=== PATIENT | male | born 1995 | race Caucasian/White ===

== ENCOUNTER 2018-07-02 12:21 | Observation (INO) | payer SELFPAY ==
[~2018-07-02] VITALS: Ht 170.2 cm; Wt 63.8 kg
[2018-07-02 12:42] LABS: BASO % 1 % (0-3); EOS # 0.1 x10^3/uL (0.0-0.7); EOS % 2 % (0-3); HEMATOCRIT 40.2 % (39.0-53.0); LYMPH # 1.4 x10^3/uL (1.0-4.8); LYMPH % 27 % (24-48); MEAN CORPUSCULAR HEMOGLOBIN 33 pg (25-35); MEAN CORPUSCULAR HGB CONC 35 g/dL (31-37); MEAN CORPUSCULAR VOLUME 94 fL (79-100); MONO # 0.5 x10^3/uL (0.0-1.1); MONO % 9 % (0-9); NEUT # 3.2 x10^3uL (1.8-7.7); NEUT % 61 % (31-73); PLATELET COUNT 220 x10^3/uL (140-400); WHITE BLOOD COUNT 5.2 x10^3/uL (4.0-11.0)
[2018-07-02 12:55] LABS: ALBUMIN 4.3 g/dL (3.4-5.0); ALBUMIN/GLOBULIN RATIO 1.3 (1.0-1.7); CREATININE 0.9 mg/dL (0.7-1.3); GFR 106.5; TOTAL BILIRUBIN 0.6 mg/dL (0.2-1.0); TOTAL PROTEIN 7.6 g/dL (6.4-8.2)
[2018-07-02 12:59] LABS: BARBITURATES NEG (NEG); BENZODIAZEPINES NEG (NEG); CANNABINOIDS POS (NEG); COCAINE NEG (NEG); METHADONE NEG (NEG); OPIATES NEG (NEG); PHENCYCLIDINE NEG (NEG)
[2018-07-02 13:00] LABS: POTASSIUM 2.9 mmol/L (3.5-5.1)
[2018-07-02 13:05] LABS: AMPHETAMINE/METHAMPHETAMINE POS (NEG)
--- NOTE | 2018-07-02 13:24 | RAD ---
CT HEAD WO CONTRAST Indication: ALTERED MENTAL STATUS, NO PRIORS Exposure: One or more of the following individualized dose reduction techniques were utilized for this examination: 1. Automated exposure control 2. Adjustment of the mA and/or kV according to patient size 3. Use of iterative reconstruction technique. Comparison: None are available. Contrast: None FINDINGS: Posterior fossa is unremarkable. No evidence of acute intracranial hemorrhage or abnormal extra-axial fluid collection. No evidence of mass effect or midline shift. Ventricles are symmetric in size and configuration. Patrick-white matter distinction is intact. Visualized orbits are unremarkable. Visualized paranasal sinuses and mastoids are clear. No acute calvarial abnormality. Impression:Negative for acute intracranial hemorrhage or mass effect. Electronically signed by: Gómez Kaye MD (07/02/2018 1:21 PM) [id number]
[2018-07-02] MEDS ORDERED: POTASSIUM CHLORIDE 20 MEQ/15 ML ORAL LIQUID. PO ONE (13:30)
[2018-07-02] MEDS ORDERED: POTASSIUM CL 30MEQ D5-0.45NACL 1,000 ML IV ONE (15:15)
[2018-07-02] MEDS ORDERED: IV NORMAL SALINE 1000ML BAG 1,000 ML IV ONE (15:15)
--- NOTE | 2018-07-02 15:37 | PHYS DOC ---
Past Medical History Past Medical History: Other Additional Past Medical Histor: UNKNOWN Past Surgical History: Other Additional Past Surgical Histo: UNKNOWN Alcohol Use: Heavy Drug Use: Other Social History Narrative: "ALL OF THEM" Adult General Chief Complaint Chief Complaint: DRUG ABUSE HPI HPI Patient is a 22 year old male brought in by ambulance with decreased mental status following abuse of methamphetamine according to the paramedics. Apparently patient was at a known drug house in the local area and has a history of polysubstance abuse additional history obtained from the mother later on was that he called her earlier and threatened to kill himself by either overdosing on methamphetamine or at one point he said he was going to bang his head against the wall to kill himself and then she actually heard him in doing so. Apparently the patient to [facility] as an inpatient on the psychiatric unit for similar issues 1 month ago. Overall history is limited by the patient's mental status Review of Systems Review of Systems LIMITED BY MENTAL STATUS Current Medications Current Medications Current Medications Medications (Trade) Dose Ordered Sig/Mckenzie Start Time Stop Time Status Last Admin Dose Admin Potassium Chloride (KCl Oral Soln) 40 meq 1X ONCE 07/02/18 13:30 07/02/18 13:31 DC Allergies Allergies Allergies Coded Allergies Type Severity Reaction Last Updated Verified Unable to Assess 07/02/18 No Physical Exam Physical Exam Constitutional: Well developed, UNDERNOURISHED, CHRONICALLY ILL APPEARING. HENT: Normocephalic, atraumatic, bilateral external ears normal, oropharynx moist, no oral exudates, nose normal. [] Eyes: PERRLA,, conjunctiva normal, no discharge. [] Neck: Normal range of motion, no tenderness, supple, no stridor. [] Cardiovascular:MILD TACHY NO MURMURS. Lungs & Thorax: Bilateral breath sounds clear to auscultation [] Abdomen:no tenderness, no masses, no pulsatile masses. [] Skin: Warm, dry, no erythema, no rash. [] MULTIPLE TATTOES. Extremities: No tenderness, no cyanosis, no clubbing, ROM intact, no edema. [] Neurologic: GCS E 3 V 4 M 5 patient requires tactile stimulation to wake up. Grossly moving all extremities pupils are 3 mm. Narcan was given prior to my arrival in the room by the paramedics they said there was no effect. Psychologic: UNABLE TO ASSESS, PT IS SOMONOLENT. Apparently nursing staff was able to ask him about suicidal ideation he said no. Current Patient Data Vital Signs Vital Signs Date Time Temp Pulse Resp B/P (MAP) Pulse Ox O2 Delivery O2 Flow Rate FiO2 07/02/18 14:56 76 13 114/58 (76) 98 Room Air 07/02/18 12:21 97.7 97.7 Lab Values Laboratory Tests Test 07/02/18 12:30 07/02/18 12:31 White Blood Count 5.2 x10^3/uL (4.0-11.0) Red Blood Count 4.30 x10^6/uL (4.30-5.70) Hemoglobin 14.0 g/dL (13.0-17.5) Hematocrit 40.2 % (39.0-53.0) Mean Corpuscular Volume 94 fL (79-100) Mean Corpuscular Hemoglobin 33 pg (25-35) Mean Corpuscular Hemoglobin Concent 35 g/dL (31-37) Red Cell Distribution Width 13.0 % (11.5-14.5) Platelet Count 220 x10^3/uL (140-400) Neutrophils (%) (Auto) 61 % (31-73) Lymphocytes (%) (Auto) 27 % (24-48) Monocytes (%) (Auto) 9 % (0-9) Eosinophils (%) (Auto) 2 % (0-3) Basophils (%) (Auto) 1 % (0-3) Neutrophils # (Auto) 3.2 x10^3uL (1.8-7.7) Lymphocytes # (Auto) 1.4 x10^3/uL (1.0-4.8) Monocytes # (Auto) 0.5 x10^3/uL (0.0-1.1) Eosinophils # (Auto) 0.1 x10^3/uL (0.0-0.7) Basophils # (Auto) 0.0 x10^3/uL (0.0-0.2) Sodium Level 141 mmol/L (136-145) Potassium Level 2.9 mmol/L (3.5-5.1) *L Chloride Level 100 mmol/L (98-107) Carbon Dioxide Level 25 mmol/L (21-32) Anion Gap 16 (6-14) H Blood Urea Nitrogen 7 mg/dL (8-26) L Creatinine 0.9 mg/dL (0.7-1.3) Estimated GFR (Cockcroft-Gault) 106.5 BUN/Creatinine Ratio 8 (6-20) Glucose Level 75 mg/dL (70-99) Calcium Level 9.0 mg/dL (8.5-10.1) Total Bilirubin 0.6 mg/dL (0.2-1.0) Aspartate Amino Transferase (AST) 27 U/L (15-37) Alanine Aminotransferase (ALT) 26 U/L (16-63) Alkaline Phosphatase 92 U/L (46-116) Total Protein 7.6 g/dL (6.4-8.2) Albumin 4.3 g/dL (3.4-5.0) Albumin/Globulin Ratio 1.3 (1.0-1.7) Ethyl Alcohol Level < 10 mg/dL (0-10) Urine Opiates Screen Neg (NEG) Urine Methadone Screen Neg (NEG) Urine Barbiturates Neg (NEG) Urine Phencyclidine Screen Neg (NEG) Urine Amphetamine/Methamphetamine Pos (NEG) Urine Benzodiazepines Screen Neg (NEG) Urine Cocaine Screen Neg (NEG) Urine Cannabinoids Screen Pos (NEG) Urine Ethyl Alcohol Neg (NEG) Laboratory Tests 07/02/18 12:30 Laboratory Tests 07/02/18 12:30 EKG EKG [] Radiology/Procedures Radiology/Procedures [] Impressions: FINDINGS: Posterior fossa is unremarkable. No evidence of acute intracranial hemorrhage or abnormal extra-axial fluid collection. No evidence of mass effect or midline shift. Ventricles are symmetric in size and configuration. Patrick-white matter distinction is intact. Visualized orbits are unremarkable. Visualized paranasal sinuses and mastoids are clear. No acute calvarial abnormality. Impression:Negative for acute intracranial hemorrhage or mass effect. Electronically signed by: Gómez Kaye MD (07/02/2018 1:21 PM) [id number] DICTATED and SIGNED BY: GÓMEZ KAYE MD DATE: 07/02/18 9152 Course & Med Decision Making Course & Med Decision Making Pertinent Labs and Imaging studies reviewed. (See chart for details) []Mom is at the bedside she is very concerned about patient's psychiatric status she says that he has thoughts of self-harm and even was trying to bang his head against the wall to kill himself. I spoke with Brad who came over to see him but patient was not interviewed mobile so the patient will be admitted on a 1-1 sitter KCl going on maintenance IV fluids because the patient was not able to take orals due to somnolence which is very likely related to methamphetamine washout patient will be reevaluated tomorrow for possible psychiatric placement by the PAT team Dr. Vazquez was made aware of the admission. Dragon Disclaimer Dragon Disclaimer This electronic medical record was generated, in whole or in part, using a voice recognition dictation system. Departure Departure Impression: Primary Impression: Suicidal ideation Disposition: ADMITTED INPATIENT Condition: STABLE Referrals: JOSEPH HO (PCP) JUANITA BARNES MD Jul 02, 2018 15:37
[2018-07-02 16:08] VITALS: BP 99/54
--- NOTE | 2018-07-02 18:25 | PDOC1 ---
History and Physical Date of Admission Date of Admission DATE: 07/02/18 TIME: 18:11 Identification/Chief Complaint Chief Complaint SEEN IN ER 22 year old male brought in by ambulance with decreased mental status following abuse of methamphetamine according to the paramedics. 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 Complaint Chief Complaint: DRUG ABUSE, ams Family History Family History: Drug Abuse Social History Smoke: 1 pack per day ALCOHOL: heavy Drugs: Marijuana, Crystal meth Current Problem List Problem List Problems Medical Problems: (1) Suicidal ideation Status: Acute Current Medications Current Medications Current Medications Potassium Chloride (KCl Oral Soln) 40 meq 1X ONCE PO ; Start 07/02/18 at 13:30 ; Stop 07/02/18 at 13:31; Status DC Sodium Chloride 1,000 ml @ 1,000 mls/hr 1X ONCE IV Last administered on at 15:13; Start 07/02/18 at 15:15; Stop 07/02/18 at 16:14; Status DC Potassium Chloride/Dextrose/ Sod Cl 1,000 ml @ 100 mls/hr 1X ONCE IV ; Start 07/02/18 at 15:15; Stop 07/03/18 at 01:14 Allergies Allergies: Coded Allergies: Unable to Assess (Unverified , 07/02/18) ROS Review of System Review of Systems Review of Systems LIMITED BY MENTAL STATUS PSYCHOLOGICAL ROS: YES: Depression, Irritablity, Mood Swings Hematological and Lymphatic: No: Bleeding Problems, Blood Clots, Blood Transfusions, Brusing, Night Sweats, Pallor, Swollen Lymph Nodes, Other Respiratory: No: Cough, Hemoptysis, Orthopnea, Pleuritic Pain, Shortness of breath, SOB with excertion, Sputum Changes, Stridor, Tachypnea, Wheezing, Other Cardiovascular: No Chest Pain, No Palpitations, No Orthopnea, No Paroxysmal Noc. Dyspnea, No Edema, No Lt Headedness, No Other Neurological: Yes Confusion Physical Exam General: Cooperative HEENT: PERRLA, EOMI, Mucous membr. moist/pink Lungs: Clear to auscultation, Normal air movement Heart: S1S2, RRR, no thrills, no gallops, no murmurs Cardiovascular: S1, S2 Breasts: Not examined Abdomen: Normal bowel sounds, Soft Rectal Exam: not examined Extremities: No clubbing, No cyanosis Neuro: Normal tone, Cranial nerves 3-12 NL Vitals Vitals Vital Signs Date Time Temp Pulse Resp B/P (MAP) Pulse Ox O2 Delivery O2 Flow Rate FiO2 07/02/18 16:08 97.2 72 16 99/54 (69) 99 Room Air 97.2 Labs Labs Laboratory Tests Test 07/02/18 12:30 07/02/18 12:31 White Blood Count 5.2 x10^3/uL (4.0-11.0) Red Blood Count 4.30 x10^6/uL (4.30-5.70) Hemoglobin 14.0 g/dL (13.0-17.5) Hematocrit 40.2 % (39.0-53.0) Mean Corpuscular Volume 94 fL (79-100) Mean Corpuscular Hemoglobin 33 pg (25-35) Mean Corpuscular Hemoglobin Concent 35 g/dL (31-37) Red Cell Distribution Width 13.0 % (11.5-14.5) Platelet Count 220 x10^3/uL (140-400) Neutrophils (%) (Auto) 61 % (31-73) Lymphocytes (%) (Auto) 27 % (24-48) Monocytes (%) (Auto) 9 % (0-9) Eosinophils (%) (Auto) 2 % (0-3) Basophils (%) (Auto) 1 % (0-3) Neutrophils # (Auto) 3.2 x10^3uL (1.8-7.7) Lymphocytes # (Auto) 1.4 x10^3/uL (1.0-4.8) Monocytes # (Auto) 0.5 x10^3/uL (0.0-1.1) Eosinophils # (Auto) 0.1 x10^3/uL (0.0-0.7) Basophils # (Auto) 0.0 x10^3/uL (0.0-0.2) Sodium Level 141 mmol/L (136-145) Potassium Level 2.9 mmol/L (3.5-5.1) Chloride Level 100 mmol/L (98-107) Carbon Dioxide Level 25 mmol/L (21-32) Anion Gap 16 (6-14) Blood Urea Nitrogen 7 mg/dL (8-26) Creatinine 0.9 mg/dL (0.7-1.3) Estimated GFR (Cockcroft-Gault) 106.5 BUN/Creatinine Ratio 8 (6-20) Glucose Level 75 mg/dL (70-99) Calcium Level 9.0 mg/dL (8.5-10.1) Total Bilirubin 0.6 mg/dL (0.2-1.0) Aspartate Amino Transf (AST/SGOT) 27 U/L (15-37) Alanine Aminotransferase (ALT/SGPT) 26 U/L (16-63) Alkaline Phosphatase 92 U/L (46-116) Total Protein 7.6 g/dL (6.4-8.2) Albumin 4.3 g/dL (3.4-5.0) Albumin/Globulin Ratio 1.3 (1.0-1.7) Ethyl Alcohol Level < 10 mg/dL (0-10) Urine Opiates Screen Neg (NEG) Urine Methadone Screen Neg (NEG) Urine Barbiturates Neg (NEG) Urine Phencyclidine Screen Neg (NEG) Urine Amphetamine/Methamphetamine Pos (NEG) Urine Benzodiazepines Screen Neg (NEG) Urine Cocaine Screen Neg (NEG) Urine Cannabinoids Screen Pos (NEG) Urine Ethyl Alcohol Neg (NEG) Laboratory Tests Test 07/02/18 12:30 07/02/18 12:31 White Blood Count 5.2 x10^3/uL (4.0-11.0) Red Blood Count 4.30 x10^6/uL (4.30-5.70) Hemoglobin 14.0 g/dL (13.0-17.5) Hematocrit 40.2 % (39.0-53.0) Mean Corpuscular Volume 94 fL (79-100) Mean Corpuscular Hemoglobin 33 pg (25-35) Mean Corpuscular Hemoglobin Concent 35 g/dL (31-37) Red Cell Distribution Width 13.0 % (11.5-14.5) Platelet Count 220 x10^3/uL (140-400) Neutrophils (%) (Auto) 61 % (31-73) Lymphocytes (%) (Auto) 27 % (24-48) Monocytes (%) (Auto) 9 % (0-9) Eosinophils (%) (Auto) 2 % (0-3) Basophils (%) (Auto) 1 % (0-3) Neutrophils # (Auto) 3.2 x10^3uL (1.8-7.7) Lymphocytes # (Auto) 1.4 x10^3/uL (1.0-4.8) Monocytes # (Auto) 0.5 x10^3/uL (0.0-1.1) Eosinophils # (Auto) 0.1 x10^3/uL (0.0-0.7) Basophils # (Auto) 0.0 x10^3/uL (0.0-0.2) Sodium Level 141 mmol/L (136-145) Potassium Level 2.9 mmol/L (3.5-5.1) Chloride Level 100 mmol/L (98-107) Carbon Dioxide Level 25 mmol/L (21-32) Anion Gap 16 (6-14) Blood Urea Nitrogen 7 mg/dL (8-26) Creatinine 0.9 mg/dL (0.7-1.3) Estimated GFR (Cockcroft-Gault) 106.5 BUN/Creatinine Ratio 8 (6-20) Glucose Level 75 mg/dL (70-99) Calcium Level 9.0 mg/dL (8.5-10.1) Total Bilirubin 0.6 mg/dL (0.2-1.0) Aspartate Amino Transf (AST/SGOT) 27 U/L (15-37) Alanine Aminotransferase (ALT/SGPT) 26 U/L (16-63) Alkaline Phosphatase 92 U/L (46-116) Total Protein 7.6 g/dL (6.4-8.2) Albumin 4.3 g/dL (3.4-5.0) Albumin/Globulin Ratio 1.3 (1.0-1.7) Ethyl Alcohol Level < 10 mg/dL (0-10) Urine Opiates Screen Neg (NEG) Urine Methadone Screen Neg (NEG) Urine Barbiturates Neg (NEG) Urine Phencyclidine Screen Neg (NEG) Urine Amphetamine/Methamphetamine Pos (NEG) Urine Benzodiazepines Screen Neg (NEG) Urine Cocaine Screen Neg (NEG) Urine Cannabinoids Screen Pos (NEG) Urine Ethyl Alcohol Neg (NEG) VTE Prophylaxis Ordered VTE Prophylaxis Devices: Yes VTE Pharmacological Prophylaxi: Yes Assessment/Plan Assessment/Plan IMPRESSION 1. AMS 2. POLYSUBSTANCE ABUSE 3. SEVERE ALCOHOL ABUSE 4. MAJOR DEPRESSION WITH SUICIDE IDEATIONS PLAN 1. SUICIDE PRECAUTIONS 2. BANANA BAG 3. SITTER 4. WITHDRAWAL PRECAUTIONS 5. CASE MGT/ PAT TEAM 6. DVT PROPHYLAXIS 7. PO PROTONIX LEONCIO SANTILLAN MD Jul 02, 2018 18:24
[2018-07-02] MEDS: PANTOPRAZOLE 40 MG TABLET.DR. PO SCH (19:30)
[2018-07-02 19:55] VITALS: BP 94/49
[2018-07-02] MEDS: ENOXAPARIN 40 MG/0.4 ML SYRINGE. SQ SCH (20:34)
[2018-07-02 23:00] VITALS: BP 94/47
[2018-07-03 03:59] VITALS: BP 118/69
[2018-07-03 06:35] LABS: BASO % 1 % (0-3); EOS # 0.4 x10^3/uL (0.0-0.7); EOS % 7 % (0-3); HEMATOCRIT 39.6 % (39.0-53.0); HEMOGLOBIN 13.9 g/dL (13.0-17.5); LYMPH % 37 % (24-48); MEAN CORPUSCULAR HEMOGLOBIN 33 pg (25-35); MEAN CORPUSCULAR HGB CONC 35 g/dL (31-37); MEAN CORPUSCULAR VOLUME 94 fL (79-100); MONO # 0.6 x10^3/uL (0.0-1.1); MONO % 11 % (0-9); NEUT # 2.5 x10^3uL (1.8-7.7); NEUT % 45 % (31-73); PLATELET COUNT 215 x10^3/uL (140-400); RED BLOOD COUNT 4.22 x10^6/uL (4.30-5.70); WHITE BLOOD COUNT 5.5 x10^3/uL (4.0-11.0)
[2018-07-03 06:43] LABS: ALBUMIN 3.4 g/dL (3.4-5.0); ALBUMIN/GLOBULIN RATIO 1.2 (1.0-1.7); CALCIUM 8.4 mg/dL (8.5-10.1); CREATININE 0.8 mg/dL (0.7-1.3); POTASSIUM 3.2 mmol/L (3.5-5.1); TOTAL BILIRUBIN 0.5 mg/dL (0.2-1.0); TOTAL PROTEIN 6.2 g/dL (6.4-8.2)
[2018-07-03 07:25] VITALS: BP 115/61
[2018-07-03] MEDS: PANTOPRAZOLE 40 MG TABLET.DR. PO SCH (07:30)
--- NOTE | 2018-07-03 08:38 | PDOC ---
PROGRESS NOTES Chief Complaint Chief Complaint depression and drug use, has been in legal trouble for many years, on drugs including meth, heavy alcohol intake mother is very concerned, he feels she is manipulative, Mother has been from his dad x yrs, due to dad's drug and alcohol use very complex social situation, he needs inpatient psych help, was at [facility] floor x 1 week last week long involved discussion with goals of stay, suicide precautions Brad may have a warrant out for his arrest in [place] due to missed court date History of Present Illness History of Present Illness Assessment/Plan Assessment/Plan IMPRESSION 1. AMS 2. POLYSUBSTANCE ABUSE 3. SEVERE ALCOHOL ABUSE 4. MAJOR DEPRESSION WITH SUICIDE IDEATIONS 5. previous hx suicide attempt at age 14 PLAN 1. SUICIDE PRECAUTIONS 2. BANANA BAG 3. SITTER 4. WITHDRAWAL PRECAUTIONS 5. CASE MGT/ PAT TEAM 6. DVT PROPHYLAXIS 7. PO PROTONIX case mgt to assist please Vitals Vitals Vital Signs Date Time Temp Pulse Resp B/P (MAP) Pulse Ox O2 Delivery O2 Flow Rate FiO2 07/03/18 08:07 Room Air 07/03/18 07:25 97.7 71 18 115/61 (79) 97 97.7 Physical Exam General: Alert, Oriented X3, Cooperative Heart: Regular rate, Normal S1, Normal S2 Lungs: Clear Abdomen: Normal bowel sounds, Soft Extremities: No clubbing, No cyanosis Skin: Other (many tattoos) Labs LABS Laboratory Tests Test 07/02/18 12:30 07/02/18 12:31 07/03/18 05:55 White Blood Count 5.2 x10^3/uL (4.0-11.0) 5.5 x10^3/uL (4.0-11.0) Red Blood Count 4.30 x10^6/uL (4.30-5.70) 4.22 x10^6/uL (4.30-5.70) Hemoglobin 14.0 g/dL (13.0-17.5) 13.9 g/dL (13.0-17.5) Hematocrit 40.2 % (39.0-53.0) 39.6 % (39.0-53.0) Mean Corpuscular Volume 94 fL (79-100) 94 fL (79-100) Mean Corpuscular Hemoglobin 33 pg (25-35) 33 pg (25-35) Mean Corpuscular Hemoglobin Concent 35 g/dL (31-37) 35 g/dL (31-37) Red Cell Distribution Width 13.0 % (11.5-14.5) 13.0 % (11.5-14.5) Platelet Count 220 x10^3/uL (140-400) 215 x10^3/uL (140-400) Neutrophils (%) (Auto) 61 % (31-73) 45 % (31-73) Lymphocytes (%) (Auto) 27 % (24-48) 37 % (24-48) Monocytes (%) (Auto) 9 % (0-9) 11 % (0-9) Eosinophils (%) (Auto) 2 % (0-3) 7 % (0-3) Basophils (%) (Auto) 1 % (0-3) 1 % (0-3) Neutrophils # (Auto) 3.2 x10^3uL (1.8-7.7) 2.5 x10^3uL (1.8-7.7) Lymphocytes # (Auto) 1.4 x10^3/uL (1.0-4.8) 2.0 x10^3/uL (1.0-4.8) Monocytes # (Auto) 0.5 x10^3/uL (0.0-1.1) 0.6 x10^3/uL (0.0-1.1) Eosinophils # (Auto) 0.1 x10^3/uL (0.0-0.7) 0.4 x10^3/uL (0.0-0.7) Basophils # (Auto) 0.0 x10^3/uL (0.0-0.2) 0.0 x10^3/uL (0.0-0.2) Sodium Level 141 mmol/L (136-145) 140 mmol/L (136-145) Potassium Level 2.9 mmol/L (3.5-5.1) 3.2 mmol/L (3.5-5.1) Chloride Level 100 mmol/L (98-107) 104 mmol/L (98-107) Carbon Dioxide Level 25 mmol/L (21-32) 26 mmol/L (21-32) Anion Gap 16 (6-14) 10 (6-14) Blood Urea Nitrogen 7 mg/dL (8-26) 3 mg/dL (8-26) Creatinine 0.9 mg/dL (0.7-1.3) 0.8 mg/dL (0.7-1.3) Estimated GFR (Cockcroft-Gault) 106.5 122.0 BUN/Creatinine Ratio 8 (6-20) 4 (6-20) Glucose Level 75 mg/dL (70-99) 91 mg/dL (70-99) Calcium Level 9.0 mg/dL (8.5-10.1) 8.4 mg/dL (8.5-10.1) Total Bilirubin 0.6 mg/dL (0.2-1.0) 0.5 mg/dL (0.2-1.0) Aspartate Amino Transf (AST/SGOT) 27 U/L (15-37) 19 U/L (15-37) Alanine Aminotransferase (ALT/SGPT) 26 U/L (16-63) 19 U/L (16-63) Alkaline Phosphatase 92 U/L (46-116) 76 U/L (46-116) Total Protein 7.6 g/dL (6.4-8.2) 6.2 g/dL (6.4-8.2) Albumin 4.3 g/dL (3.4-5.0) 3.4 g/dL (3.4-5.0) Albumin/Globulin Ratio 1.3 (1.0-1.7) 1.2 (1.0-1.7) Ethyl Alcohol Level < 10 mg/dL (0-10) Urine Opiates Screen Neg (NEG) Urine Methadone Screen Neg (NEG) Urine Barbiturates Neg (NEG) Urine Phencyclidine Screen Neg (NEG) Urine Amphetamine/Methamphetamine Pos (NEG) Urine Benzodiazepines Screen Neg (NEG) Urine Cocaine Screen Neg (NEG) Urine Cannabinoids Screen Pos (NEG) Urine Ethyl Alcohol Neg (NEG) Assessment and Plan Assessmemt and Plan Problems Medical Problems: (1) Suicidal ideation Status: Acute Comment Review of Relevant I have reviewed the following items arline (where applicable) has been applied. Labs Laboratory Tests Test 07/02/18 12:30 07/02/18 12:31 07/03/18 05:55 White Blood Count 5.2 x10^3/uL (4.0-11.0) 5.5 x10^3/uL (4.0-11.0) Red Blood Count 4.30 x10^6/uL (4.30-5.70) 4.22 x10^6/uL (4.30-5.70) Hemoglobin 14.0 g/dL (13.0-17.5) 13.9 g/dL (13.0-17.5) Hematocrit 40.2 % (39.0-53.0) 39.6 % (39.0-53.0) Mean Corpuscular Volume 94 fL (79-100) 94 fL (79-100) Mean Corpuscular Hemoglobin 33 pg (25-35) 33 pg (25-35) Mean Corpuscular Hemoglobin Concent 35 g/dL (31-37) 35 g/dL (31-37) Red Cell Distribution Width 13.0 % (11.5-14.5) 13.0 % (11.5-14.5) Platelet Count 220 x10^3/uL (140-400) 215 x10^3/uL (140-400) Neutrophils (%) (Auto) 61 % (31-73) 45 % (31-73) Lymphocytes (%) (Auto) 27 % (24-48) 37 % (24-48) Monocytes (%) (Auto) 9 % (0-9) 11 % (0-9) Eosinophils (%) (Auto) 2 % (0-3) 7 % (0-3) Basophils (%) (Auto) 1 % (0-3) 1 % (0-3) Neutrophils # (Auto) 3.2 x10^3uL (1.8-7.7) 2.5 x10^3uL (1.8-7.7) Lymphocytes # (Auto) 1.4 x10^3/uL (1.0-4.8) 2.0 x10^3/uL (1.0-4.8) Monocytes # (Auto) 0.5 x10^3/uL (0.0-1.1) 0.6 x10^3/uL (0.0-1.1) Eosinophils # (Auto) 0.1 x10^3/uL (0.0-0.7) 0.4 x10^3/uL (0.0-0.7) Basophils # (Auto) 0.0 x10^3/uL (0.0-0.2) 0.0 x10^3/uL (0.0-0.2) Sodium Level 141 mmol/L (136-145) 140 mmol/L (136-145) Potassium Level 2.9 mmol/L (3.5-5.1) 3.2 mmol/L (3.5-5.1) Chloride Level 100 mmol/L (98-107) 104 mmol/L (98-107) Carbon Dioxide Level 25 mmol/L (21-32) 26 mmol/L (21-32) Anion Gap 16 (6-14) 10 (6-14) Blood Urea Nitrogen 7 mg/dL (8-26) 3 mg/dL (8-26) Creatinine 0.9 mg/dL (0.7-1.3) 0.8 mg/dL (0.7-1.3) Estimated GFR (Cockcroft-Gault) 106.5 122.0 BUN/Creatinine Ratio 8 (6-20) 4 (6-20) Glucose Level 75 mg/dL (70-99) 91 mg/dL (70-99) Calcium Level 9.0 mg/dL (8.5-10.1) 8.4 mg/dL (8.5-10.1) Total Bilirubin 0.6 mg/dL (0.2-1.0) 0.5 mg/dL (0.2-1.0) Aspartate Amino Transf (AST/SGOT) 27 U/L (15-37) 19 U/L (15-37) Alanine Aminotransferase (ALT/SGPT) 26 U/L (16-63) 19 U/L (16-63) Alkaline Phosphatase 92 U/L (46-116) 76 U/L (46-116) Total Protein 7.6 g/dL (6.4-8.2) 6.2 g/dL (6.4-8.2) Albumin 4.3 g/dL (3.4-5.0) 3.4 g/dL (3.4-5.0) Albumin/Globulin Ratio 1.3 (1.0-1.7) 1.2 (1.0-1.7) Ethyl Alcohol Level < 10 mg/dL (0-10) Urine Opiates Screen Neg (NEG) Urine Methadone Screen Neg (NEG) Urine Barbiturates Neg (NEG) Urine Phencyclidine Screen Neg (NEG) Urine Amphetamine/Methamphetamine Pos (NEG) Urine Benzodiazepines Screen Neg (NEG) Urine Cocaine Screen Neg (NEG) Urine Cannabinoids Screen Pos (NEG) Urine Ethyl Alcohol Neg (NEG) Laboratory Tests Test 07/02/18 12:30 07/02/18 12:31 07/03/18 05:55 White Blood Count 5.2 x10^3/uL (4.0-11.0) 5.5 x10^3/uL (4.0-11.0) Red Blood Count 4.30 x10^6/uL (4.30-5.70) 4.22 x10^6/uL (4.30-5.70) Hemoglobin 14.0 g/dL (13.0-17.5) 13.9 g/dL (13.0-17.5) Hematocrit 40.2 % (39.0-53.0) 39.6 % (39.0-53.0) Mean Corpuscular Volume 94 fL (79-100) 94 fL (79-100) Mean Corpuscular Hemoglobin 33 pg (25-35) 33 pg (25-35) Mean Corpuscular Hemoglobin Concent 35 g/dL (31-37) 35 g/dL (31-37) Red Cell Distribution Width 13.0 % (11.5-14.5) 13.0 % (11.5-14.5) Platelet Count 220 x10^3/uL (140-400) 215 x10^3/uL (140-400) Neutrophils (%) (Auto) 61 % (31-73) 45 % (31-73) Lymphocytes (%) (Auto) 27 % (24-48) 37 % (24-48) Monocytes (%) (Auto) 9 % (0-9) 11 % (0-9) Eosinophils (%) (Auto) 2 % (0-3) 7 % (0-3) Basophils (%) (Auto) 1 % (0-3) 1 % (0-3) Neutrophils # (Auto) 3.2 x10^3uL (1.8-7.7) 2.5 x10^3uL (1.8-7.7) Lymphocytes # (Auto) 1.4 x10^3/uL (1.0-4.8) 2.0 x10^3/uL (1.0-4.8) Monocytes # (Auto) 0.5 x10^3/uL (0.0-1.1) 0.6 x10^3/uL (0.0-1.1) Eosinophils # (Auto) 0.1 x10^3/uL (0.0-0.7) 0.4 x10^3/uL (0.0-0.7) Basophils # (Auto) 0.0 x10^3/uL (0.0-0.2) 0.0 x10^3/uL (0.0-0.2) Sodium Level 141 mmol/L (136-145) 140 mmol/L (136-145) Potassium Level 2.9 mmol/L (3.5-5.1) 3.2 mmol/L (3.5-5.1) Chloride Level 100 mmol/L (98-107) 104 mmol/L (98-107) Carbon Dioxide Level 25 mmol/L (21-32) 26 mmol/L (21-32) Anion Gap 16 (6-14) 10 (6-14) Blood Urea Nitrogen 7 mg/dL (8-26) 3 mg/dL (8-26) Creatinine 0.9 mg/dL (0.7-1.3) 0.8 mg/dL (0.7-1.3) Estimated GFR (Cockcroft-Gault) 106.5 122.0 BUN/Creatinine Ratio 8 (6-20) 4 (6-20) Glucose Level 75 mg/dL (70-99) 91 mg/dL (70-99) Calcium Level 9.0 mg/dL (8.5-10.1) 8.4 mg/dL (8.5-10.1) Total Bilirubin 0.6 mg/dL (0.2-1.0) 0.5 mg/dL (0.2-1.0) Aspartate Amino Transf (AST/SGOT) 27 U/L (15-37) 19 U/L (15-37) Alanine Aminotransferase (ALT/SGPT) 26 U/L (16-63) 19 U/L (16-63) Alkaline Phosphatase 92 U/L (46-116) 76 U/L (46-116) Total Protein 7.6 g/dL (6.4-8.2) 6.2 g/dL (6.4-8.2) Albumin 4.3 g/dL (3.4-5.0) 3.4 g/dL (3.4-5.0) Albumin/Globulin Ratio 1.3 (1.0-1.7) 1.2 (1.0-1.7) Ethyl Alcohol Level < 10 mg/dL (0-10) Urine Opiates Screen Neg (NEG) Urine Methadone Screen Neg (NEG) Urine Barbiturates Neg (NEG) Urine Phencyclidine Screen Neg (NEG) Urine Amphetamine/Methamphetamine Pos (NEG) Urine Benzodiazepines Screen Neg (NEG) Urine Cocaine Screen Neg (NEG) Urine Cannabinoids Screen Pos (NEG) Urine Ethyl Alcohol Neg (NEG) Medications Current Medications Potassium Chloride (KCl Oral Soln) 40 meq 1X ONCE PO ; Start 07/02/18 at 13:30 ; Stop 07/02/18 at 13:31; Status DC Sodium Chloride 1,000 ml @ 1,000 mls/hr 1X ONCE IV Last administered on at 15:13; Start 07/02/18 at 15:15; Stop 07/02/18 at 16:14; Status DC Potassium Chloride/Dextrose/ Sod Cl 1,000 ml @ 100 mls/hr 1X ONCE IV Last administered on 07/02/18at 19:44; Start 07/02/18 at 15:15; Stop 07/03/18 at 01:14 ; Status DC Enoxaparin Sodium (Lovenox 40mg Syringe) 40 mg Q24H SQ ; Start 07/02/18 at 21:00 Pantoprazole Sodium (Protonix) 40 mg DAILYAC PO ; Start 07/02/18 at 19:30 Vitals/I & O Vital Sign - Last 24 Hours 07/02/18 07/02/18 07/02/18 07/02/18 12:21 12:56 13:26 13:56 Temp 97.7 97.7 Pulse 89 86 92 86 Resp 14 13 15 13 B/P (MAP) 132/79 (96) 116/68 (84) 119/62 (81) 110/55 (73) Pulse Ox 98 98 98 98 O2 Delivery Room Air Room Air Room Air Room Air 07/02/18 07/02/18 07/02/18 07/02/18 14:26 14:56 15:26 16:08 Temp 97.2 97.2 Pulse 84 76 76 72 Resp 12 13 16 16 B/P (MAP) 103/54 (70) 114/58 (76) 127/75 (92) 99/54 (69) Pulse Ox 98 98 100 99 O2 Delivery Room Air Room Air Room Air Room Air 07/02/18 07/02/18 07/02/18 07/02/18 19:55 19:55 19:55 20:00 Temp 97.8 97.8 97.8 97.8 Pulse 72 72 Resp 19 19 B/P (MAP) 94/49 (64) 94/49 (64) Pulse Ox 100 100 O2 Delivery Room Air Room Air Room Air 07/02/18 07/02/18 07/03/18 07/03/18 23:00 23:00 03:59 07:25 Temp 97.6 97.4 97.7 97.6 97.4 97.7 Pulse 72 82 71 Resp 19 18 18 B/P (MAP) 94/47 (63) 118/69 (85) 115/61 (79) Pulse Ox 99 97 97 O2 Delivery Room Air Room Air Room Air 07/03/18 08:07 O2 Delivery Room Air Intake and Output 07/02/18 07/02/18 07/03/18 15:00 23:00 07:00 Intake Total 0 ml Output Total 0 ml Balance 0 ml LEONCIO SANTILLAN MD Jul 03, 2018 08:38
[2018-07-03 11:00] VITALS: BP 117/76
[2018-07-03 15:00] VITALS: BP 119/77
[2018-07-03 19:29] VITALS: BP 117/69
[2018-07-03] MEDS: ENOXAPARIN 40 MG/0.4 ML SYRINGE. SQ SCH (20:13)
[2018-07-03 23:59] VITALS: BP 110/55
[2018-07-04 02:29] VITALS: BP 100/57
[2018-07-04 07:33] VITALS: BP 115/79
[2018-07-04] MEDS: PANTOPRAZOLE 40 MG TABLET.DR. PO SCH (08:30)
--- NOTE | 2018-07-04 09:18 | PDOC ---
PROGRESS NOTES Chief Complaint Chief Complaint depression and drug use, has been in legal trouble for many years, on drugs including meth, heavy alcohol intake mother is very concerned, he feels she is manipulative, Mother has been from his dad x yrs, due to dad's drug and alcohol use very complex social situation, he needs inpatient psych help, was at [facility] floor x 1 week last week long involved discussion with goals of stay, suicide precautions, mother is concerned that he had a rope at his home and may have tried to hang himself Brad may have a warrant out for his arrest in [place] due to missed court date d/w [facility], THEY WILL ACCEPT TODAY History of Present Illness History of Present Illness Assessment/Plan Assessment/Plan IMPRESSION 1. AMS 2. POLYSUBSTANCE ABUSE 3. SEVERE ALCOHOL ABUSE 4. MAJOR DEPRESSION WITH SUICIDE IDEATIONS 5. previous hx suicide attempt at age 14 PLAN 1. SUICIDE PRECAUTIONS 2. BANANA BAG 3. SITTER 4. WITHDRAWAL PRECAUTIONS 5. CASE MGT/ PAT TEAM 6. DVT PROPHYLAXIS 7. PO PROTONIX case mgt to assist please Vitals Vitals Vital Signs Date Time Temp Pulse Resp B/P (MAP) Pulse Ox O2 Delivery O2 Flow Rate FiO2 07/04/18 07:52 Room Air 07/04/18 07:33 97.9 80 18 115/79 (91) 96 97.9 Physical Exam General: Alert, Oriented X3, Cooperative, No acute distress Heart: Regular rate, Normal S1, Normal S2 Lungs: Clear Abdomen: Normal bowel sounds, Soft, No tenderness Extremities: No clubbing, No cyanosis Skin: No breakdown, Other (many tattoos) Assessment and Plan Assessmemt and Plan Problems Medical Problems: (1) Suicidal ideation Status: Acute Comment Review of Relevant I have reviewed the following items arline (where applicable) has been applied. Labs Laboratory Tests Test 07/02/18 12:30 07/02/18 12:31 07/03/18 05:55 White Blood Count 5.2 x10^3/uL (4.0-11.0) 5.5 x10^3/uL (4.0-11.0) Red Blood Count 4.30 x10^6/uL (4.30-5.70) 4.22 x10^6/uL (4.30-5.70) Hemoglobin 14.0 g/dL (13.0-17.5) 13.9 g/dL (13.0-17.5) Hematocrit 40.2 % (39.0-53.0) 39.6 % (39.0-53.0) Mean Corpuscular Volume 94 fL (79-100) 94 fL (79-100) Mean Corpuscular Hemoglobin 33 pg (25-35) 33 pg (25-35) Mean Corpuscular Hemoglobin Concent 35 g/dL (31-37) 35 g/dL (31-37) Red Cell Distribution Width 13.0 % (11.5-14.5) 13.0 % (11.5-14.5) Platelet Count 220 x10^3/uL (140-400) 215 x10^3/uL (140-400) Neutrophils (%) (Auto) 61 % (31-73) 45 % (31-73) Lymphocytes (%) (Auto) 27 % (24-48) 37 % (24-48) Monocytes (%) (Auto) 9 % (0-9) 11 % (0-9) Eosinophils (%) (Auto) 2 % (0-3) 7 % (0-3) Basophils (%) (Auto) 1 % (0-3) 1 % (0-3) Neutrophils # (Auto) 3.2 x10^3uL (1.8-7.7) 2.5 x10^3uL (1.8-7.7) Lymphocytes # (Auto) 1.4 x10^3/uL (1.0-4.8) 2.0 x10^3/uL (1.0-4.8) Monocytes # (Auto) 0.5 x10^3/uL (0.0-1.1) 0.6 x10^3/uL (0.0-1.1) Eosinophils # (Auto) 0.1 x10^3/uL (0.0-0.7) 0.4 x10^3/uL (0.0-0.7) Basophils # (Auto) 0.0 x10^3/uL (0.0-0.2) 0.0 x10^3/uL (0.0-0.2) Sodium Level 141 mmol/L (136-145) 140 mmol/L (136-145) Potassium Level 2.9 mmol/L (3.5-5.1) 3.2 mmol/L (3.5-5.1) Chloride Level 100 mmol/L (98-107) 104 mmol/L (98-107) Carbon Dioxide Level 25 mmol/L (21-32) 26 mmol/L (21-32) Anion Gap 16 (6-14) 10 (6-14) Blood Urea Nitrogen 7 mg/dL (8-26) 3 mg/dL (8-26) Creatinine 0.9 mg/dL (0.7-1.3) 0.8 mg/dL (0.7-1.3) Estimated GFR (Cockcroft-Gault) 106.5 122.0 BUN/Creatinine Ratio 8 (6-20) 4 (6-20) Glucose Level 75 mg/dL (70-99) 91 mg/dL (70-99) Calcium Level 9.0 mg/dL (8.5-10.1) 8.4 mg/dL (8.5-10.1) Total Bilirubin 0.6 mg/dL (0.2-1.0) 0.5 mg/dL (0.2-1.0) Aspartate Amino Transf (AST/SGOT) 27 U/L (15-37) 19 U/L (15-37) Alanine Aminotransferase (ALT/SGPT) 26 U/L (16-63) 19 U/L (16-63) Alkaline Phosphatase 92 U/L (46-116) 76 U/L (46-116) Total Protein 7.6 g/dL (6.4-8.2) 6.2 g/dL (6.4-8.2) Albumin 4.3 g/dL (3.4-5.0) 3.4 g/dL (3.4-5.0) Albumin/Globulin Ratio 1.3 (1.0-1.7) 1.2 (1.0-1.7) Ethyl Alcohol Level < 10 mg/dL (0-10) Urine Opiates Screen Neg (NEG) Urine Methadone Screen Neg (NEG) Urine Barbiturates Neg (NEG) Urine Phencyclidine Screen Neg (NEG) Urine Amphetamine/Methamphetamine Pos (NEG) Urine Benzodiazepines Screen Neg (NEG) Urine Cocaine Screen Neg (NEG) Urine Cannabinoids Screen Pos (NEG) Urine Ethyl Alcohol Neg (NEG) Medications Current Medications Potassium Chloride (KCl Oral Soln) 40 meq 1X ONCE PO ; Start 07/02/18 at 13:30 ; Stop 07/02/18 at 13:31; Status DC Sodium Chloride 1,000 ml @ 1,000 mls/hr 1X ONCE IV Last administered on at 15:13; Start 07/02/18 at 15:15; Stop 07/02/18 at 16:14; Status DC Potassium Chloride/Dextrose/ Sod Cl 1,000 ml @ 100 mls/hr 1X ONCE IV Last administered on 07/02/18at 19:44; Start 07/02/18 at 15:15; Stop 07/03/18 at 01:14 ; Status DC Enoxaparin Sodium (Lovenox 40mg Syringe) 40 mg Q24H SQ ; Start 07/02/18 at 21:00 Pantoprazole Sodium (Protonix) 40 mg DAILYAC PO Last administered on 07/04/18at 08:30; Start 07/02/18 at 19:30 Lorazepam (Ativan) 1 mg PRN Q8HRS PRN IV ANXIETY / AGITATION; Start 07/03/18 at 15:45 Vitals/I & O Vital Sign - Last 24 Hours 07/03/18 07/03/18 07/03/18 07/03/18 11:00 12:49 15:00 19:29 Temp 97.8 97.9 97.5 97.8 97.9 97.5 Pulse 97 91 83 Resp 16 16 18 B/P (MAP) 117/76 (90) 119/77 (91) 117/69 (85) Pulse Ox 95 95 95 O2 Delivery Room Air Room Air Room Air Room Air 07/03/18 07/03/18 07/03/18 07/04/18 19:45 23:59 23:59 02:29 Temp 97.6 97.5 97.6 97.5 Pulse 64 63 Resp 21 20 B/P (MAP) 110/55 (73) 100/57 (71) Pulse Ox 97 95 O2 Delivery Room Air Room Air Room Air 07/04/18 07/04/18 07:33 07:52 Temp 97.9 97.9 Pulse 80 Resp 18 B/P (MAP) 115/79 (91) Pulse Ox 96 O2 Delivery Room Air Room Air Intake and Output 07/03/18 07/03/18 07/04/18 15:00 23:00 07:00 Intake Total 1960 ml 1000 ml 200 ml Output Total 0 ml 800 ml 0 ml Balance 1960 ml 200 ml 200 ml LEONCIO SANTILLAN MD Jul 04, 2018 09:18
[2018-07-04 10:29] VITALS: BP 112/74
[2018-07-04 15:13] VITALS: BP 117/68
--- NOTE | 2018-07-04 15:28 | PDOC3 ---
Discharge Summary Date of Admission: Jul 02, 2018 Date of Discharge: Jul 04, 2018 Follow-Up: 1-2 days Admitting Diagnosis comment: Chief Complaint Chief Complaint depression and drug use, has been in legal trouble for many years, on drugs including meth, heavy alcohol intake mother is very concerned, he feels she is manipulative, Mother has been from his dad x yrs, due to dad's drug and alcohol use very complex social situation, he needs inpatient psych help, was at [facility] floor x 1 week last week long involved discussion with goals of stay, suicide precautions, mother is concerned that he had a rope at his home and may have tried to hang himself Brad may have a warrant out for his arrest in [place] due to missed court date d/w [facility], THEY WILL ACCEPT TODAY History of Present Illness History of Present Illness Assessment/Plan TRANSFER DIAGNOSIS/ D/C DX 1. ACUTE MENTAL STATUS ALTERATION SEC # 2 , # 3 2. POLYSUBSTANCE ABUSE 3. SEVERE ALCOHOL ABUSE 4. MAJOR DEPRESSION WITH SUICIDE IDEATIONS 5. previous hx suicide attempt at age 14 PLAN 1. SUICIDE PRECAUTIONS 2. BANANA BAG 3. SITTER 4. WITHDRAWAL PRECAUTIONS 5. CASE MGT/ PAT TEAM 6. DVT PROPHYLAXIS 7. PO PROTONIX TRANSFER TO OSH TODAY BY AMBULANCE case mgt to assist please Vitals Vitals Vital Signs Date Time Temp Pulse Resp B/P (MAP) Pulse Ox O2 Delivery O2 Flow Rate FiO2 07/04/18 07:52 Room Air 07/04/18 07:33 97.9 80 18 115/79 (91) 96 97.9 Physical Exam General: Alert, Oriented X3, Cooperative, No acute distress Heart: Regular rate, Normal S1, Normal S2 Lungs: Clear Abdomen: Normal bowel sounds, Soft, No tenderness Extremities: No clubbing, No cyanosis Skin: No breakdown, Other (many tattoos) FINAL DIAGNOSIS Problems Medical Problems: (1) Suicidal ideation Status: Acute Brief Hospital Course Mr. Young is a 22 old [sex] who presented with [ MAJOR DEPRESSION, SUBSTANCE ABUSE] CONDITION AT DISCHARGE: Comment (GUARDED) Discharge Medications Current Medications Potassium Chloride (KCl Oral Soln) 40 meq 1X ONCE PO ; Start 07/02/18 at 13:30 ; Stop 07/02/18 at 13:31; Status DC Sodium Chloride 1,000 ml @ 1,000 mls/hr 1X ONCE IV Last administered on at 15:13; Start 07/02/18 at 15:15; Stop 07/02/18 at 16:14; Status DC Potassium Chloride/Dextrose/ Sod Cl 1,000 ml @ 100 mls/hr 1X ONCE IV Last administered on 07/02/18at 19:44; Start 07/02/18 at 15:15; Stop 07/03/18 at 01:14 ; Status DC Enoxaparin Sodium (Lovenox 40mg Syringe) 40 mg Q24H SQ ; Start 07/02/18 at 21:00 Pantoprazole Sodium (Protonix) 40 mg DAILYAC PO Last administered on 07/04/18at 08:30; Start 07/02/18 at 19:30 Lorazepam (Ativan) 1 mg PRN Q8HRS PRN IV ANXIETY / AGITATION; Start 07/03/18 at 15:45 Vital Signs Vital Signs Date Time Temp Pulse Resp B/P (MAP) Pulse Ox O2 Delivery O2 Flow Rate FiO2 07/04/18 15:13 97.8 90 18 117/68 (84) 96 Room Air 97.8 Labs Laboratory Tests Test 07/03/18 05:55 White Blood Count 5.5 x10^3/uL (4.0-11.0) Red Blood Count 4.22 x10^6/uL (4.30-5.70) Hemoglobin 13.9 g/dL (13.0-17.5) Hematocrit 39.6 % (39.0-53.0) Mean Corpuscular Volume 94 fL (79-100) Mean Corpuscular Hemoglobin 33 pg (25-35) Mean Corpuscular Hemoglobin Concent 35 g/dL (31-37) Red Cell Distribution Width 13.0 % (11.5-14.5) Platelet Count 215 x10^3/uL (140-400) Neutrophils (%) (Auto) 45 % (31-73) Lymphocytes (%) (Auto) 37 % (24-48) Monocytes (%) (Auto) 11 % (0-9) Eosinophils (%) (Auto) 7 % (0-3) Basophils (%) (Auto) 1 % (0-3) Neutrophils # (Auto) 2.5 x10^3uL (1.8-7.7) Lymphocytes # (Auto) 2.0 x10^3/uL (1.0-4.8) Monocytes # (Auto) 0.6 x10^3/uL (0.0-1.1) Eosinophils # (Auto) 0.4 x10^3/uL (0.0-0.7) Basophils # (Auto) 0.0 x10^3/uL (0.0-0.2) Sodium Level 140 mmol/L (136-145) Potassium Level 3.2 mmol/L (3.5-5.1) Chloride Level 104 mmol/L (98-107) Carbon Dioxide Level 26 mmol/L (21-32) Anion Gap 10 (6-14) Blood Urea Nitrogen 3 mg/dL (8-26) Creatinine 0.8 mg/dL (0.7-1.3) Estimated GFR (Cockcroft-Gault) 122.0 BUN/Creatinine Ratio 4 (6-20) Glucose Level 91 mg/dL (70-99) Calcium Level 8.4 mg/dL (8.5-10.1) Total Bilirubin 0.5 mg/dL (0.2-1.0) Aspartate Amino Transf (AST/SGOT) 19 U/L (15-37) Alanine Aminotransferase (ALT/SGPT) 19 U/L (16-63) Alkaline Phosphatase 76 U/L (46-116) Total Protein 6.2 g/dL (6.4-8.2) Albumin 3.4 g/dL (3.4-5.0) Albumin/Globulin Ratio 1.2 (1.0-1.7) Allergies Allergies Coded Allergies Type Severity Reaction Last Updated Verified Cephalosporins Allergy Intermediate Rash 07/02/18 Yes Penicillins Allergy Intermediate Rash 07/02/18 Yes Disposition/Orders: D/C to Another Facility ([facility]) Patient Instructions D/C PLANNING 40 MIN LEONCIO SANTILLAN MD Jul 04, 2018 15:28
--- NOTE | 2018-07-04 15:30 | DISCH ---
DISCHARGE INSTRUCTIONS Condition on Discharge Condition on Discharge: Guarded Activity After Discharge Activity Instructions for Disc: Resume previous activity Driving Instructions after Dis: Do not drive Weight Bearing Status after Di: As tolerated Diet after Discharge Diet after Discharge: Regular Contacting the DR. after DC Call your doctor for: TRANSFER TO [facility] TODAY BY AMBULANCE LEONCIO SANTILLAN MD Jul 04, 2018 15:30
[2018-07-04] MEDS ORDERED: POTASSIUM CHLORIDE 20 MEQ TABLET.ER. PO ONE (16:00)
== END 2018-07-04 16:33 | disposition short-term general hospital (02) ==
LOC: ER 12:21 → EEVIPCON 15:14 → 5 SOUTH 15:14
PROVIDERS: ADMIT Family Medicine; ATTEND Family Medicine
DX: R41.82 Altered mental status, unspecified (principal); R45.851 Suicidal ideations; F32.9 Major depressive disorder, single episode, unspecified; F17.210 Nicotine dependence, cigarettes, uncomplicated; F10.10 Alcohol abuse, uncomplicated; F19.10 Other psychoactive substance abuse, uncomplicated; F12.10 Cannabis abuse, uncomplicated; Z91.5 Personal history of self-harm
CPT/HCPCS: 36415; 70450; 80053; 80307; 85025; 96360; 96361; 99285; G0378; G0379; G0480; J7030; J2060; G0479